=== PATIENT | male | born 1985 | race Caucasian/White ===

== ENCOUNTER 2023-02-06 14:00 | Emergency (ER) | payer OTHER ==
[~2023-02-06] VITALS: Ht 167.6 cm; Wt 81.6 kg
[2023-02-06 14:24] VITALS: BP 144/90; PULSE 75; RESP 18; TEMP 98; O2SAT 98
[2023-02-06] MEDS ORDERED: KETOROLAC 30 MG/ML VIAL IM ONE (15:20)
[2023-02-06] MEDS ORDERED: IBUP-2213 PO (16:43)
[2023-02-06] MEDS ORDERED: LID5T TP (16:43)
[2023-02-06] MEDS ORDERED: CYCL-711 PO (16:43)
[2023-02-06 16:59] VITALS: BP 137/86; PULSE 71; RESP 16; TEMP 97.2; O2SAT 94
== END 2023-02-06 17:01 | disposition home or self-care (01) ==
LOC: MED 14:00
DX: M54.50 Low back pain, unspecified (principal); Z79.899 Other long term (current) drug therapy
CPT/HCPCS: 72100; 96372; 99283; J1885